=== PATIENT | male | born 1955 | race Caucasian/White ===

== ENCOUNTER 2017-04-23 06:05 | Day surgery (SDC) | payer BC ==
[2017-04-19 10:01] LABS: HEMATOCRIT 44.4 % (40.0-51.0); HEMOGLOBIN 15.3 g/dL (13.6-17.8)
[~2017-04-23] VITALS: Ht 180.3 cm; Wt 81.6 kg
--- NOTE | ~2017-04-23 | OP ---
Record Of Operation [facility] [address] [place]. [address] NAME: DON OCASIO : 53 STATUS : [facility]#: [id number] AGE: 61 ADM/REG DATE : 04/23/17 MR#: [id number] REPORT SERV DATE: 04/23/17 DICTATED BY: DANIELLE NG DATE: 04/23/17 REPORT STATUS : Draft TRANSCRIBED BY: OSCAR DATE: 04/23/17 DATE OF PROCEDURE: 04/23/2017 PREOPERATIVE DIAGNOSIS: Urethral meatal stricture. POSTOPERATIVE DIAGNOSIS: Urethral meatal stricture. PROCEDURE: Cysto with dilation of male urethral sounds. SR. DIRECTOR PRODUCT MANAGEMENT: JACKY Sauceda ANESTHESIA: General. PREOPERATIVE INDICATIONS: A 61-year-old male, status post a robotic-assisted laparoscopic radical prostatectomy in 02/2017. At six days postoperatively, he was reporting a narrow caliber stream with a split stream. He had evidence of a urethral meatal stricture, which was dilated in the office. He was able to self dilate for several days and then had recurrence of his stricture. This was again dilated in the office and a 16-Ecuadorean catheter was placed. In the office, it was my impression that this was a fairly dense meatal stricture, therefore I left the catheter in for approximately two weeks and advised cysto urethral dilation, possible meatotomy, and flexible cystoscopy under general anesthesia. Risks, alternatives, and benefits were discussed. He understood and agreed to proceed. DESCRIPTION OF OPERATIVE PROCEDURE: Following adequate general anesthesia, the patient was placed in a dorsal lithotomy position, prepped and draped in the usual sterile fashion. His catheter had been removed. His urethral meatus was dilated with male sounds from 16 to 24- Ecuadorean. This dilated very easily. A flexible cystoscope was then introduced into the urethra and guided into the bladder under direct vision. There was no evidence of any proximal stricture. His urethral vesical anastomosis was patent and healing well. There were no abnormal findings in the bladder other than the expected inflammatory changes from an indwelling catheter. The scope was removed. A 20-Ecuadorean sound was again placed into the urethral meatus. This was placed very easily. The procedure was therefore concluded. He was awakened from his anesthesia, had tolerated it well, and transferred to the recovery room in satisfactory condition. AMI/OSCAR Danielle Ng M.D. / [id number] CC: Danielle Ng M.D. Record Of Operation [facility] [address] [place] [id number] NAME: DON OCASIO : 53 STATUS : [facility]#: [id number] AGE: 61 ADM/REG DATE : 04/23/17 MR#: [id number] REPORT SERV DATE: 04/23/17 DICTATED BY: DANIELLE NG DATE: 04/23/17 REPORT STATUS : Draft TRANSCRIBED BY: MODL DATE: 04/23/17 Manohar Wei MD
[~2017-04-23 06:05] MED LIST: ALEVE220 MG PO; DSS PO; GOODY'S EX-STR1 EAC1 PO; MILK THISTLE PO; NIACIN 500 PO; OMEGA PO; PROBIOTIC PO; PROSTA-METTO PO; TUMERIC PO
== END 2017-04-23 11:47 | disposition home or self-care (01) ==
LOC: SDC 06:05
PROVIDERS: Urology
PROC: 0T7D8ZZ Dilation of Urethra, Via Natural or Artificial Opening Endoscopic (ICD-10-PCS; principal; 2017-04-23 07:45)
DX: N99.110 Postprocedural urethral stricture, male, meatal (principal); I10 Essential (primary) hypertension; M19.90 Unspecified osteoarthritis, unspecified site; K21.9 Gastro-esophageal reflux disease without esophagitis; E29.1 Testicular hypofunction; Z88.0 Allergy status to penicillin; Z88.1 Allergy status to other antibiotic agents; Z88.8 Allergy status to other drugs, medicaments and biological substances; Z88.5 Allergy status to narcotic agent; Z87.891 Personal history of nicotine dependence; Z85.46 Personal history of malignant neoplasm of prostate; Z90.79 Acquired absence of other genital organ(s); Z98.890 Other specified postprocedural states; Z79.899 Other long term (current) drug therapy
CPT/HCPCS: 85014; 85018; 93005; J0690; J1885; J2250; J2405; J3010